=== PATIENT | male | born 1975 | race Hispanic/Latino ===

== ENCOUNTER 2021-06-25 08:52 | Emergency (ER) | payer BC ==
[~2021-06-25] VITALS: Ht 182.9 cm; Wt 104.3 kg
[2021-06-25] MEDS ORDERED: DECADRON4 M1 PO (09:28)
== END 2021-06-25 09:50 | disposition home or self-care (01) ==
LOC: ER 09:24
DX: U07.1 COVID-19 (principal); R05 Cough; R50.9 Fever, unspecified
CPT/HCPCS: 99283